=== PATIENT | female | born 1945 | race Caucasian/White ===

== ENCOUNTER → 2017-01-27 | Outpatient (CLI) | payer OTHER ==
[~2017-01-27] MED LIST: ASPCH81X PO; BUTA-56 PO; BUTACAP36 PO; CALC500C70 PO; CRDCD300 PO; DILT-117 PO; DOXY100C76 PO; FLNIN NAE; FLUT0.15 NAE; KETO75CA PO; POLYSOL8 OPB; PRLSR20 PO; SIMV40TA2 PO; SPIR25TA PO; ZCRUNK PO
[2017-01-27 13:57] LABS: BASO % 0.5 %; BASO ABS # 0.03 K/uL (0-0.2); COMPLETE YES; HEMATOCRIT 42.5 % (37-47); IG% 0.2 %; LYMPH % 32.5 %; LYMPH ABS # 1.88 K/uL (1.2-3.4); MEAN CELL VOLUME 82.4 fL (80-100); MEAN CORPUSCULAR HEMOGLOBIN 28.7 pg (25-34); MEAN CORPUSCULAR HGB CONC 34.8 g/dl (32-36); MEAN PLATELET VOLUME 9.7 fL (7.4-10.4); MONO % 6.9 %; NEUT % 54.9 %; PLATELET COUNT 268 K/uL (130-400); RED BLOOD COUNT 5.16 M/uL (4.2-5.4); WHITE BLOOD COUNT 5.79 K/uL (4.8-10.8)
[2017-01-27 14:15] LABS: ALT/SGPT 45 U/L (12-78); AST/SGOT 23 U/L (15-37); BLOOD UREA NITROGEN 9 mg/dl (7-18); BUN/CREATININE RATIO 12.5 (10-20); CALCIUM 9.6 mg/dl (8.5-10.1); CARBON DIOXIDE 28 mmol/L (21-32); CHLORIDE 104 mmol/L (98-107); CHOLESTEROL 110 mg/dl (0-200); CREATININE 0.75 mg/dl (0.60-1.20); GLUCOSE 93 mg/dl (70-99); POTASSIUM 3.7 mmol/L (3.5-5.1); SODIUM 140 mmol/L (136-145); TRIGLYCERIDES 115 mg/dl (0-150); VERY LOW DENSITY LIPOPROT CALC 23 mg/dl
[2017-01-27 14:26] LABS: CHOLESTEROL/HDL RATIO 2.7; HDL CHOLESTEROL 41 mg/dl; LDL CHOLESTEROL CALCULATED 46 mg/dl; THYROID STIMULATING HORMONE 0.173 uIu/ml (0.300-4.500)
[2017-01-27 14:35] LABS: ESTIMATED AVERAGE GLUCOSE 123 mg/dl; HA1C FLAG Normal (Normal)
[2017-01-27 15:11] LABS: URINE APPEARANCE CLEAR (CLEAR); URINE BILIRUBIN NEG (NEG); URINE COLOR YELLOW; URINE NITRITE NEG (NEG); URINE PH 7.5 (4.5-7.5); URINE SPECIFIC GRAVITY 1.015 (1.000-1.030); UROBILINOGEN NEG (NEG)
[2017-01-27 15:17] LABS: MANUAL MICROSCOPIC REQUIRED? YES; REVIEW REQ? NO
[2017-01-27 15:44] LABS: URINE BACTERIA 1+ (NEG); URINE MUCUS PRESENT (NONE PRSENT)
[2017-01-27 15:45] LABS: URINE RBC 0-4 /hpf (0-4)
--- NOTE | 2017-02-03 10:34 | CODING QUERY MEDICAL NECESSITY ---
SUPPORTING DIAGNOSIS NEEDED Dr. Marcelo, A supporting diagnosis is required for the test/procedure performed on this patient in order for us to be reimbursed by the patient's insurance. Please provide a supporting diagnosis for the following test/procedure listed below next to the test name along with your signature. *If there is no additional diagnosis for this patient that would support the following test/procedure please document that below next to the test/procedure. Test(s)/Procedure(s) that require a supporting diagnosis: * [id number] GLYCATED HEMOGLOBIN DIAGNOSIS: DATE OF SERVICE: 01/27/17 Provider Signature: Date: Thank you Eugenio Nino [facility] Information Management Once completed, please kindly fax back to [phone] For questions please call [phone]
== END | disposition home or self-care (01) ==
LOC: C.LABBC 09:24
PROVIDERS: ATTEND Internal Medicine
DX: R94.6 Abnormal results of thyroid function studies (principal); R73.9 Hyperglycemia, unspecified

== ENCOUNTER → 2017-01-30 | Outpatient (CLI) | payer OTHER ==
--- NOTE | 2017-01-30 09:18 | DIAGNOSTIC IMAGING REPORT ---
LEFT HAND MIN 3 VIEWS ROUTINE CLINICAL HISTORY: Left hand pain. Trigger finger. COMPARISON: None. DISCUSSION: The bones are mildly osteopenic. There are advanced osteoarthritic changes at the level of the first carpal metacarpal joint. There are exuberant osteophytic spurs and several loose bodies are visualized. Mild degenerative changes are present elsewhere. There are no acute fractures. There is no erosive disease. IMPRESSION: 1. No acute fractures 2. 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 01/30/2017 9:16 AM Dictated Date/Time: 01/30/2017 9:15 AM
--- NOTE | 2017-01-30 09:28 | DIAGNOSTIC IMAGING REPORT ---
RIGHT HAND MIN 3 VIEWS ROUTINE CLINICAL HISTORY: M65.30 Trigger finger, [id number] Pain, hand join Right pain COMPARISON: None. DISCUSSION: Severe degenerative change first and to lesser extent second carpometacarpal joint. Partial degenerative subluxation of the first carpometacarpal joint. Reactive osteophytic formation. Sclerosis of the articular services. All remaining osseous structures are unremarkable. Minimal degenerative change of the distal interphalangeal joints. IMPRESSION: Severe degenerative change first and to a lesser extent second carpometacarpal joint. Minimal degenerative change distal interphalangeal joints throughout Electronically signed by: Marcelino Armenta M.D. 01/30/2017 9:26 AM Dictated Date/Time: 01/30/2017 9:25 AM
[2017-01-30 10:28] LABS: RHEUMATOID FACTOR < 10.0 U/mL (0-15); TOTAL IRON BINDING CAPACITY 342 mcg/dl (250-450)
== END | disposition home or self-care (01) ==
LOC: C.RAD1850 08:38
PROVIDERS: ATTEND Internal Medicine Rheumatology
DX: M25.549 Pain in joints of unspecified hand (principal); M65.30 Trigger finger, unspecified finger; M18.0 Bilateral primary osteoarthritis of first carpometacarpal joints

== ENCOUNTER → 2017-04-21 | Outpatient (CLI) | payer OTHER ==
[~2017-04-21] MED LIST changes: -BUTACAP36 PO; -DILT-117 PO; -DOXY100C76 PO; -FLUT0.15 NAE; -SIMV40TA2 PO
--- NOTE | 2017-04-21 15:38 | MAMMOGRAPHY REPORT ---
BILATERAL DIGITAL SCREENING MAMMOGRAM TOMOSYNTHESIS WITH CAD: 04/21/2017 CLINICAL HISTORY: Routine screening. Patient has no complaints. TECHNIQUE: Breast tomosynthesis in addition to standard 2D mammography was performed. Current study was also evaluated with a Computer Aided Detection (CAD) system. COMPARISON: Comparison is made to exams dated: 03/28/2016 mammogram, 03/18/2016 mammogram, 02/15/2014 ma mmogram, 02/21/2015 mammogram, 01/26/2013 mammogram, and 01/21/2012 mammogram - [facility]. BREAST COMPOSITION: There are scattered areas of fibroglandular density in both breasts. FINDINGS: There are benign-appearing calcifications in the breasts. Multiple bilateral circumscribed subcentimeter masses scattered in the breasts. The circumscribed borders are best appreciated on th e corresponding, stenosis images. These findings most likely represent benign fibrocystic changes an d fluctuating cysts. No suspicious spiculated or irregular mass, architectural distortion or cluster of suspicious microcalcifications is seen. IMPRESSION: ACR BI-RADS CATEGORY 1: NEGATIVE There is no mammographic evidence of malignancy. A 1 year screening mammogram is recommended. The pa tient will receive written notification of the results. Approximately 10% of breast cancers are not detected with mammography. A negative mammographic report should not delay biopsy if a clinically suggestive mass is present. Katerin Dodson M.D. ay/:04/21/2017 15:23:12 Greenhouse Instructor: Lupis ROTHMAN(Dorota)(M), [facility] letter sent: Normal 1/2 BI-RADS Code: ACR BI-RADS Category 1: Negative
== END | disposition home or self-care (01) ==
LOC: C.MAMM 13:23
PROVIDERS: ATTEND Obstetrics & Gynecology
DX: Z12.31 Encounter for screening mammogram for malignant neoplasm of breast (principal)

== ENCOUNTER → 2017-04-27 | Outpatient (CLI) | payer OTHER | END | disposition home or self-care (01) | LOC: C.RDSM 15:00 | PROVIDERS: ATTEND Physical Medicine & Rehabilitation Sports Medicine | DX: R10.30 Lower abdominal pain, unspecified (principal); M25.561 Pain in right knee; M25.562 Pain in left knee ==

== ENCOUNTER → 2017-08-03 | Outpatient (CLI) | payer OTHER ==
--- NOTE | 2017-08-03 14:05 | DIAGNOSTIC IMAGING REPORT ---
R LOWER EXT JOINT WITHOUT CLINICAL HISTORY: 72 years-old Female presenting with OSTEOPOROSIS OF R HIP. TECHNIQUE: Multisequence, multiplanar MR imaging of the right hip was performed without the use of intravenous contrast. IV contrast: None. COMPARISON: Plain radiographs of the pelvis from 04/27/2017. FINDINGS: Localizer images: Unremarkable. Normal bone marrow signal intensity within the pelvis and hips. No fracture. No joint effusion. Increased intrasubstance signal within the anterior superior labrum likely degenerative change. A focal tear is difficult to exclude (series 10 image 7). Mildly increased signal intensity at the greater tuberosity at the insertion site of the right gluteus complex. Otherwise normal muscle bulk and signal intensity. Scoliotic curvature and degenerative change in the lower lumbar spine. Sacroiliac joints normal. Degenerative changes of the pubic symphysis. Limited evaluation of the soft tissues of the pelvis demonstrates a septate or bicornuate uterus with either longitudinal septum in the cervix or bicollis configuration. Several subserosal uterine fibroids noted. No adnexal masses. Diverticulosis of the sigmoid colon. No free fluid. No lymphadenopathy. IMPRESSION: 1. No fracture. 2. Degeneration of the anterior superior right hip labrum with possible degenerative tear. 3. Right gluteus strain at the insertion at the intertrochanter. 4. Incidental findings as above. Electronically signed by: Chucho Littlejohn M.D. 08/03/2017 2:04 PM Dictated Date/Time: 08/03/2017 1:58 PM
== END | disposition home or self-care (01) ==
LOC: C.MRIBC 12:44
PROVIDERS: ATTEND Physical Medicine & Rehabilitation Sports Medicine
DX: M16.11 Unilateral primary osteoarthritis, right hip (principal); S76.011A Strain of muscle, fascia and tendon of right hip, initial encounter; X58.XXXA Exposure to other specified factors, initial encounter

== ENCOUNTER → 2017-09-11 | Outpatient (CLI) | payer OTHER ==
[~2017-09-11] MED LIST changes: -BUTA-56 PO; +BUTACAP36 PO; -CRDCD300 PO; +DILT-117 PO; -FLNIN NAE; +FLUT0.15 NAE; +SIMV40TA2 PO; -ZCRUNK PO
[2017-09-11 13:40] LABS: BASO % 0.6 %; BASO ABS # 0.04 K/uL (0-0.2); COMPLETE YES; EOS % 3.2 %; IG% 0.3 %; LYMPH % 26.3 %; LYMPH ABS # 1.65 K/uL (1.2-3.4); MEAN CELL VOLUME 83.7 fL (80-100); MEAN CORPUSCULAR HGB CONC 33.5 g/dl (32-36); MEAN PLATELET VOLUME 9.8 fL (7.4-10.4); MONO % 6.9 %; NEUT % 62.7 %; PLATELET COUNT 278 K/uL (130-400); RED BLOOD COUNT 5.14 M/uL (4.2-5.4); WHITE BLOOD COUNT 6.27 K/uL (4.8-10.8)
[2017-09-11 13:58] LABS: ESTIMATED AVERAGE GLUCOSE 120 mg/dl; HA1C FLAG Normal (Normal)
[2017-09-11 13:59] LABS: ALT/SGPT 34 U/L (12-78); AST/SGOT 21 U/L (15-37); BLOOD UREA NITROGEN 16 mg/dl (7-18); BUN/CREATININE RATIO 24.6 (10-20); CALCIUM 9.6 mg/dl (8.5-10.1); CARBON DIOXIDE 26 mmol/L (21-32); CHLORIDE 102 mmol/L (98-107); CREATININE 0.65 mg/dl (0.60-1.20); GLUCOSE 105 mg/dl (70-99); POTASSIUM 3.7 mmol/L (3.5-5.1); SODIUM 136 mmol/L (136-145)
[2017-09-11 14:10] LABS: CHOLESTEROL 109 mg/dl (0-200); CHOLESTEROL/HDL RATIO 2.7; HDL CHOLESTEROL 41 mg/dl; LDL CHOLESTEROL CALCULATED 44 mg/dl; THYROID STIMULATING HORMONE 0.063 uIu/ml (0.300-4.500); TRIGLYCERIDES 118 mg/dl (0-150); VERY LOW DENSITY LIPOPROT CALC 24 mg/dl
== END | disposition home or self-care (01) ==
LOC: C.LABBC 09:28
PROVIDERS: ATTEND Internal Medicine
DX: R94.6 Abnormal results of thyroid function studies (principal)

== ENCOUNTER → 2017-09-30 | Day surgery (SDC) | payer OTHER ==
[2017-09-07 11:28] VITALS: Ht 171.5 cm; Wt 83.2 kg
[~2017-09-30] VITALS: Ht 171.5 cm; Wt 83.2 kg
[~2017-09-30] MED LIST changes: +BUPIVACAINE 0.25% 2.5MG/ML PF 10 ML VIAL ONE; +DOXY100C76 PO; +LIDOCAINE MPF 1% INJ 30 ML SDV (L&D) INFIL ONE
--- NOTE | 2017-09-30 13:43 | History & Physical Bridge - SC ---
H&P Re-Evaluation Bridge Note: I have examined the patient, reviewed the History & Physical and in the interval since the performance of the History & Physical I have noted the following changes of clinical significance: No changes noted
[2017-09-30 14:44] VITALS: TEMP 37
--- NOTE | 2017-09-30 14:53 | Discharge Instructions ---
Discharge Instructions Date of Service Sep 30, 2017. Visit Reason for Visit: Lumbar Spondylosis Discharge Discharge Diagnosis / Problem: low back pain Discharge Goals Goal(s): Decrease discomfort, Improve function Activity Recommendations Activity Limitations: resume your previous activity Anesthesia . Post Anesthesia Instructions: If you have had General Anesthesia or IV Sedation: * Do not drive today. * Resume driving when surgeon permits. * Do not make important decisions or sign legal documents today. * Call surgeon for: 1. Temperature elevations greater than 101 degrees F. 2. Uncontrollable pain. 3. Excessive bleeding. 4. Persistent nausea and vomiting. 5. Medication intolerance (nausea, vomiting or rash). * For nausea and vomiting use only clear liquids such as: tea, soda, bouillon until nausea subsides, then gradually increase diet as tolerated. * If you have any concerns or questions, call your surgeon's office. If physician is unavailable and it is an emergency, call 911 or go to the nearest emergency room. . Diet Recommendations Recommended Home Diet: resume previous diet Procedures Procedures Performed: Bilateral L5-S1 radio frequesncy denervation Pending Studies Studies pending at discharge: no Medical Emergencies . Who to Call and When: Medical Emergencies: If at any time you feel your situation is an emergency, please call 911 immediately. . Non-Emergent Contact Non-Emergency issues call your: Specialist . . "Provider Documentation" section prepared by Edward Norris. .
[2017-09-30 15:00] VITALS: BP 129/75; PULSE 80; O2SAT 96
--- NOTE | 2017-09-30 15:09 | OPERATIVE REPORT ---
DATE OF OPERATION: 09/30/2017 PREOPERATIVE DIAGNOSIS: Chronic low back pain, bilateral L5-S1 facet arthropathy. POSTOPERATIVE DIAGNOSIS: Same. PROCEDURE: Bilateral L5-S1 radiofrequency facet denervations. SURGEON: Dr. Edward Norris. INDICATIONS: The patient is a 72-year-old white female that had a left L5-S1 facet denervation done in March 2016. She reported great relief of pain at the time, however the pain is starting to return. She also notices the pain is now involving the right side of the low back and is inquiring about having bilateral denervation done to address the facet generated pain. PHYSICAL EXAMINATION: GENERAL: Pleasant female seated comfortably in no apparent distress. MUSCULOSKELETAL: Lumbar paraspinal muscles were palpated and noted be nontender. She is point tender to palpation at the L4-L5 facet area which was worse with extension, extension rotation. CONSENT: Verbal and written consent was obtained from the patient. Risks and benefits were reviewed. Risks include but are not limited to abscess, allergic reaction and nerve denervation, she wishes to proceed. PROCEDURE: The patient was taken back to the special procedures room of the [facility] where she was maintained in a prone position. Backside was cleansed with Betadine x3 and a dry sterile dressing was applied. Fluoroscope was used to identify the left L5 transverse process junction and the left sacral ala. Overlying skin was anesthetized with 1.5 mL of lidocaine 1% with a 25 gauge 1.5-inch needle. A 22 gauge 10 cm Hawthorne needle was then used to contact bony targets. It was manipulated so that sensory stimulation could be felt at 0.2 volts at both sites. Motor stimulation failed to provoke anything beyond local parallel spinal spasms, nothing down the leg. She then underwent anesthetization with an additional mL of lidocaine 1% and denervation 80 degrees 100 seconds x2 at each site, then this was followed up by injection of 1 mL of bupivacaine 0.25% at each site. The right L5 transverse process junction and the right sacral ala were then fluoroscopically identified. Overlying skin was anesthetized with 0.5 mL of lidocaine 1% with a 25 gauge 1.5-inch needle at each site. A 22 gauge 10 cm Tammy needle was placed. It showed sensory stimulation at 0.2 volts at L5 and 0.4 volts at the sacral ala on the right side. Motor stimulation did not provoke any movements of the legs, just slight paraspinal spasms more at 5 than the sacral ala. She then underwent an additional anesthetization with 1 mL lidocaine 1% at each site and then denervation 80 degrees 100 seconds x2 at each site and then followed up by bupivacaine 0.25% 1 mL at each site. Injection was well tolerated. DISPOSITION: 1. The patient is taken out into the discharge recovery area where she will be discharged home once discharge criteria have been met. 2. Follow up in the [facility] office in 2-4 weeks. I attest to the content of the Intraoperative Record and any orders documented therein. Any exception s are noted below.
== END | disposition home or self-care (01) ==
LOC: X.SURG 12:54
PROVIDERS: ATTEND Physical Medicine & Rehabilitation
DX: M54.5 Low back pain (principal); G89.29 Other chronic pain; M46.97 Unspecified inflammatory spondylopathy, lumbosacral region; Z79.82 Long term (current) use of aspirin; Z79.899 Other long term (current) drug therapy

== ENCOUNTER → 2017-12-25 | Outpatient (CLI) | payer OTHER ==
[~2017-12-25] MED LIST changes: -BUPIVACAINE 0.25% 2.5MG/ML PF 10 ML VIAL ONE; -LIDOCAINE MPF 1% INJ 30 ML SDV (L&D) INFIL ONE
== END | disposition home or self-care (01) ==
LOC: C.PAPS 07:51
PROVIDERS: ATTEND Obstetrics & Gynecology
DX: Q51.2 Other doubling of uterus (principal)

== ENCOUNTER → 2017-12-25 | Outpatient (CLI) | payer OTHER | END | disposition home or self-care (01) | LOC: C.PAPS 07:54 | PROVIDERS: ATTEND Obstetrics & Gynecology | DX: Q51.2 Other doubling of uterus (principal) ==

== ENCOUNTER → 2017-12-29 | Outpatient (CLI) | payer OTHER | END | disposition home or self-care (01) | LOC: C.MAMM 13:37 | PROVIDERS: ATTEND Obstetrics & Gynecology | DX: M85.89 Other specified disorders of bone density and structure, multiple sites (principal) ==

== ENCOUNTER → 2018-02-08 | Outpatient (CLI) | payer OTHER | END | disposition home or self-care (01) | LOC: C.RDSM 15:39 | PROVIDERS: ATTEND Physical Medicine & Rehabilitation Sports Medicine | DX: Z96.659 Presence of unspecified artificial knee joint (principal) ==

== ENCOUNTER → 2018-06-02 | Outpatient (CLI) | payer OTHER ==
--- NOTE | 2018-06-02 15:35 | Discharge Instructions ---
Discharge Instructions Procedure Procedure Date: Jun 02, 2018. Reason for visit: Right Distortion. Discharge Discharge Date: Jun 02, 2018. Discharge Diagnosis: post right breast ultrasound guided core biopsy Instructions Activity Recommendations: Additional Limitations (see below) Return to School/Work: no limitations Recommended Home Diet: No Limitations Provider Instructions: ACTIVITY RECOMMENDATIONS: * No lifting, pushing, pulling or exercising the affected side for three days. RETURN TO SCHOOL/WORK: * You may return to work/school after the procedure, but do not perform any strenuous activities for 24 to 48 hours. MEDICATIONS: * Tylenol (two 325 mg) every four to six hours if needed for mild pain (if not allergic to Tylenol). DIET: * Resume previous diet. SPECIAL CARE INSTRUCTIONS: * Keep biopsy site dry for 24 hours. May shower after 24 hours, but do not soak (bathe) incision. May remove Tegaderm (plastic patch) 24 hours after procedure * Leave the steri-strips on for one week. Allow the steri-strips to fall off by themselves. If not off after one week, you may remove them. You may place a Bandaid crosswise over the strips, if desired. * Apply ice 10 minutes on and 10 minutes off as needed. * Wear a bra at bedtime to sleep more comfortably for 2-3 days. * Your referring physician should have the results after approximately 5 to 7 business days. * Call for unusual bleeding, fever, drainage, etc or if you have any questions call [phone] during normal business hours or after hours call Dr Dodson, . FOLLOW UP VISIT: Follow-up with Referring Physician as scheduled. Allergies Coded Allergies: Cefuroxime (Verified Allergy, Mild, HIVES, 09/07/17) Penicillins (Verified Allergy, Unknown, HIVES, 09/07/17) Clarithromycin (Unverified Adverse Reaction, Mild, GI UPSET, 09/07/17) Moxifloxacin (Unverified Adverse Reaction, Mild, GI UPSET, 09/07/17) Dejah Dawson Recommendations: Call your doctor if: * Temperature above 101 degrees * Pain not relieved by pain medicine ordered * There is increased drainage or redness from any incision * You have any unanswered questions or concerns. Your Doctors Instructions noted above were prepared by provider Katerin Dodson. Patient Signature Section: Patient Instructions Signature Page Tammie Avelar Patient (or Guardian) Signature/Date: I have read and understand the instructions given to me by my caregivers. Caregiver/RN/Doctor Signature/Date: The above-named patient and/or guardian has received patient instructions on this date. + Original Patient Signature Page (only) stays with chart. Please make copy for patient.
--- NOTE | 2018-06-03 15:13 | MAMMOGRAPHY REPORT ---
ULTRASOUND GUIDED BIOPSY RIGHT BREAST: 06/02/2018 CLINICAL HISTORY: 73-year-old woman presents for ultrasound-guided core biopsy of a small subtle foca l area of architectural distortion in the 10:00 right breast, thought to correspond with a small subt le focal area of architectural distortion in the right upper outer quadrant mammographically. COMPARISON: Comparison is made to exams dated: 06/02/2018 ultrasound, 04/21/2017 mammogram, 03/18/2016 m ammogram, 02/21/2015 mammogram, and 01/08/2010 mammogram - [facility]. PATIENT CONSENT: The procedure, risks and benefits were discussed with the patient and informed conse nt was obtained both verbally and in writing. Specific risks to this procedure include: bleeding, in fection, puncture of adjacent structure, nontarget biopsy, sampling error, pain, metal allergy and me dication reaction. The patient is currently taking 81 mg aspirin daily but did not yet take any toda y, this can increase the risk of bleeding/bruising. PROCEDURE DESCRIPTION: A time out was performed and the right breast was agreed as the site of biopsy . The skin was prepped and draped in the usual sterile fashion. The subtle 2 mm area of shadowing wit h associated architectural distortion in the 10:00 right breast was chosen as the target for biopsy. Subcutaneous and intraparenchymal 1% buffered lidocaine, with and without epinephrine, was administer ed as local anesthesia. A skin incision was made. Through the incision, 3 samples were taken with a 14 gauge Achieve biopsy device. After the third sample there was bleeding from the biopsy site and p ressure was held manually for 10 minutes. After manual pressure, hematoma was seen at the biopsy sit e and the subtle shadowing lesion was no longer visualized, therefore, a ribbon shaped metallic marke r was placed at the biopsy site. The patient tolerated the procedure well and there was no immediate complication. The samples were sent to the pathology department in an appropriately labeled containe r. Postprocedure right CC and ML tomosynthesis images were obtained. A new ribbon-shaped biopsy marker clip is seen in the upper outer middle one third of the right breast. There is a postbiopsy hematoma measuring 3.7 x 2.0 by approximately 2.0 cm. Based on correlation and measurements from the postbio psy mammograms, the biopsy marker clip may be displaced medially by a few millimeters, although appea rs in good location considering the lesion was no longer visible at the time of clip placement. If n eedle localization is needed, preprocedure tomosynthesis images may be useful, as the focal area of d istortion is no longer seen due to biopsy sampling and/or obscured by the current postbiopsy hematoma . IMPRESSION: ULTRASOUND GUIDED BIOPSY Status post ultrasound-guided core biopsy of a small subtle focal area of architectural distortion in the 10:00 right breast, with ribbon-shaped biopsy marker clip placed at the site. The patient was wrapped in an [place] bandage pressure dressing prior to leaving, despite the small size of her postbiopsy hematoma, because she was traveling to [place] immediately after leaving the d epartment. The patient will receive notification of the biopsy results from her referring physician. Katerin Dodson M.D. ay/:06/02/2018 16:51:48 Knitting Inspector: PRESTON Canela)(Verna), [facility]
--- NOTE | 2018-06-03 15:13 | MAMMOGRAPHY REPORT ---
UNILATERAL RIGHT DIGITAL DIAGNOSTIC MAMMOGRAM TOMOSYNTHESIS AND TARGETED RIGHT ULTRASOUND: 06/02/2018 CLINICAL HISTORY: Call back from screening mammogram for possible right breast architectural distorti on. TECHNIQUE: The study was acquired using full field digital technology and interpreted from soft copy. Breast tomosynthesis in addition to standard 2D mammography was performed. Spot compression right C C and MLO 2D and tomosynthesis images were obtained. COMPARISON: Comparison is made to exams dated: 05/10/2018 mammogram, 04/21/2017 mammogram, 03/28/2016 ma mmogram, 03/18/2016 mammogram, 02/21/2015 mammogram, and 02/15/2014 mammogram - [facility]. BREAST COMPOSITION: There are scattered areas of fibroglandular density in right breast. FINDINGS: Spot compression views demonstrate a persistent small focal area of architectural distortion in the r ight upper outer quadrant. Targeted ultrasound was performed of the right upper outer quadrant to th e region of the mammographic distortion. In the right 10:00 breast, approximately 2 cm from the nipp le, there is a focal hypoechoic region with posterior acoustic shadowing and associated architectural distortion, measuring approximately 2 x 2 mm. This corresponds with the mammographic distortion and is indeterminate, with differential including radial scar or malignancy. Recommend ultrasound-guide d core needle biopsy for further evaluation. Postprocedural mammograms were also performed after the biopsy; see the separate biopsy dictation report for details. IMPRESSION: ACR BI-RADS CATEGORY 4: SUSPICIOUS, ULTRASOUND ACR BI-RADS CATEGORY 4: SUSPICIOUS Persistent small focal area of architectural distortion in the right upper outer quadrant mammographi moreno. A corresponding 2 mm hypoechoic lesion with associated architectural distortion is seen in th e right 10:00 breast on ultrasound. The finding is indeterminant, with differential including radial scar or malignancy. Recommend ultrasound-guided core needle biopsy for further evaluation. A phone call was made to the physician's office to confirm faxed results were received. The patient has been verbally notified of the results. The biopsy was performed later the same day. Some breast cancers are not detected with mammography. A negative mammographic report should not casey y biopsy if a clinically suggestive mass is present. Dorota Mayberry M.D. ah/:06/02/2018 15:12:46 Area Director Of Home Health Sales: RT Hilton(R)(M), [facility] OVERALL STUDY BIRADS: 4 Suspicious abnormality
== END | disposition home or self-care (01) ==
LOC: C.MAMM 13:02
PROVIDERS: ATTEND Obstetrics & Gynecology
DX: N60.91 Unspecified benign mammary dysplasia of right breast (principal); R92.0 Mammographic microcalcification found on diagnostic imaging of breast

== ENCOUNTER → 2018-06-10 | Outpatient (CLI) | payer OTHER ==
[~2018-06-10] MED LIST changes: +MELO7.5T5 PO
== END | disposition home or self-care (01) ==
LOC: C.CPL 11:30
PROVIDERS: ATTEND Surgery
DX: Z01.818 Encounter for other preprocedural examination (principal); N64.89 Other specified disorders of breast